=== PATIENT | male | born 1960 | race Two or more races ===

== ENCOUNTER 2019-10-08 23:56 | Inpatient (IN) | payer MEDICAID ==
[~2019-10-08] VITALS: Ht 175.3 cm; Wt 66.9 kg
[2019-10-09 00:46] LABS: Basophils # (auto) 0 10 ^3/uL (0-0.2); Basophils % (auto) 0.3 % (0.0-2.0); Eosinophils # (auto) 0 10 ^3/uL (0-0.8); Eosinophils % (auto) 0.4 % (0.0-7.0); Hematocrit 30.4 % (41.0-53.0); Lymphocytes # (auto) 0.2 10 ^3/uL (0.4-5.4); Lymphocytes % (auto) 5.2 % (10.0-50.0); Mean Corpuscular Hemoglobin 29.9 pg (28.0-32.0); Mean Corpuscular Hgb Conc. 32.8 g/dL (32.0-36.0); Mean Corpuscular Volume 91.1 fL (80.0-100.0); Monocytes # (auto) 0.1 10 ^3/uL (0-1.3); Monocytes % (auto) 4.9 % (0.0-12.0); Neutrophils # (auto) 2.6 10 ^3/uL (1.6-8.6); Neutrophils % (auto) 89.2 % (37.0-80.0); Nucleated Red Blood Cells % 0.1 %; Platelet Count (auto) 117 10^3/uL (140-450); Red Blood Cells 3.34 10^6/uL (4.5-5.90); Red Cell Distribution Width 13.1 % (11.8-14.3); White Blood Cell 2.9 10^3/uL (4.4-10.8)
[2019-10-09 00:58] LABS: Alanine Aminotransferase 74 U/L (16-61); Albumin 2.2 g/dL (3.4-5.0); Anion Gap 7 (5-15); Aspartate Aminotransferase 63 U/L (15-37); BUN/Creatinine Ratio 15.7; Blood Urea Nitrogen 11 mg/dL (7-18); Calcium 7.5 mg/dL (8.5-10.1); Carbon Dioxide 27 mmol/L (21-32); Chloride 97 mmol/L (98-107); GFR African American 150 mL/min; GFR Non-African American 124 mL/min; Glucose 125 mg/dL (74-106); Potassium 3.9 mmol/L (3.5-5.1); Sodium 131 mmol/L (136-145)
[2019-10-09] MEDS ORDERED: PIPERACILLIN-TAZOB 3.375GM 100 ML IV ONE (01:00)
[2019-10-09] MEDS ORDERED: VANCOMYCIN 1GM/250ML 250 ML IV ONE (01:00)
[2019-10-09] MEDS ORDERED: SODIUM CHLORIDE 0.9% 500 ML IV ONE ×2 (01:00→17:00)
[2019-10-09 01:02] LABS: Alkaline Phosphatase 143 U/L (45-117); Bilirubin, Total 0.7 mg/dL (0.2-1.0); Total Protein 6.1 g/dL (6.4-8.2)
[2019-10-09 01:39] LABS: INR 1.13 (0.9-1.15); Partial Thromboplastin Time 26.5 sec (23.0-31.2)
[2019-10-09] MEDS ORDERED: MORPHINE SULF INJ 2 MG/ML SYRINGE 1ML IV PRN (06:15)
[2019-10-09] MEDS ORDERED: NITROGLYCERIN 0.4 MG SL TAB SL PRN (06:15)
[2019-10-09] MEDS ORDERED: ACETAMINOPHEN 325 MG TAB PO PRN (06:15)
[2019-10-09] MEDS ORDERED: ONDANSETRON HCL 4 MG/2 ML VIAL IV PRN (06:15)
[2019-10-09 06:38] LABS: Magnesium 1.9 mg/dL (1.6-2.6)
[2019-10-09 06:52] LABS: CRP High Sensitivity 17.9 mg/dL (< 0.3)
--- NOTE | 2019-10-09 08:45 | NUR ---
Patient arrived from ER via wheelchair. Patient oriented to room, call light placed bedside, bed in locked and lowest position with 2x side rails up. Patient placed on 10L simple mask. VS: 99.7, 87, 16, 98%, 94/63. No complaints of pain or discomfort at this time. Personal belongings bedside with patient.
[2019-10-09 09:00] VITALS: BP 94/63
[2019-10-09] MEDS ORDERED: ENOXAPARIN SOD 40 MG/0.4 ML SYRINGE SC SCH ×2 (10:00)
[2019-10-09] MEDS ORDERED: DOXYCYCLINE 100MG/250ML 250 ML IV SCH (10:00)
[2019-10-09] MEDS: DexAMETHasone SOD PHOS 10MG/1ML VIAL INJ IV SCH (10:05)
[2019-10-09] MEDS: CHOLECALCIFEROL (VITD3) 2,000 UNIT CAP PO SCH (10:06)
[2019-10-09] MEDS: ASCORBIC ACID 1,000 MG TAB PO SCH (10:06)
[2019-10-09] MEDS: ZINC SULFATE 220mg CAP or TAB PO SCH (10:06)
[2019-10-09] MEDS: FAMOTIDINE 20 MG TAB PO SCH ×2 (10:06→22:31)
[2019-10-09] MEDS ORDERED: AZIT250T8 PO (10:27)
[2019-10-09] MEDS ORDERED: IPRAAER6 IN (10:27)
[2019-10-09] MEDS ORDERED: ALBUAER3 IN (10:27)
[2019-10-09] MEDS ORDERED: METH-818 PO (10:27)
[2019-10-09] MEDS ORDERED: VANCOMYCIN PER PHARMACY 0 MG IV SCH (11:45)
[2019-10-09 12:00] VITALS: BP 102/64
--- NOTE | 2019-10-09 12:45 | NUR ---
Dr Lyles bedside with patient discussing plan of care.
[2019-10-09] MEDS ORDERED: LACTULOSE 20Gm/30ML SOLN PO ONE (13:00)
--- NOTE | 2019-10-09 13:06 | NUR ---
Medical Record Request Request for medical records faxed to [facility] ([place]). Signed request in chart.
[2019-10-09] MEDS: PIPERACILLIN-TAZOB 3.375GM 100 ML IV SCH ×2 (13:12→18:11)
--- NOTE | 2019-10-09 13:25 | NUR ---
Covid swab walked down to lab
[2019-10-09] MEDS ORDERED: VANCOMYCIN 1GM/250ML 250 ML IV SCH (15:00)
--- NOTE | 2019-10-09 15:30 | NUR ---
Remdesivir consent Patient reviewed and signed consent for Remdesivir. Faxed Remdesivir consent to pharmacy and placed in patient chart
--- NOTE | 2019-10-09 15:59 | NUR ---
Informed Dr Lyles of patients run of [facility]. Strip in chart. Dr Lyles placing orders. Addendum: 10/09/19 at 1602 by MARCO GARCIA RN RN Wrong patient Note. Disregard
[2019-10-09] MEDS ORDERED: MAGNESIUM SULFATE 1GM/100ML 100 ML IV SCH (16:00)
--- NOTE | 2019-10-09 16:45 | NUR ---
Patients BP 77/59. Informed Dr Lyles, 500 ml bolus ordered and carried out. Per Dr Lyles, hold administration of Remdesivir today. Per Pharmacy request, medication sent back to Pharmacy. Will continue to monitor patient
[2019-10-09 17:00] VITALS: BP 85/54
[2019-10-09] MEDS ORDERED: REMDESIVIR 200 MG in NS 210ml LOADING DOSE ADULT IV ONE (17:00)
--- NOTE | 2019-10-09 17:50 | NUR ---
BP Reassessment BP is now 92/50. Patient remains asymptomatic. Will continue to monitor.
--- NOTE | 2019-10-09 18:05 | NUR ---
Dr Lyles informed of new bp. would like patient upgraded to CARISA status. Informed Charge Nurse, Joel, and carried out orders from
--- NOTE | 2019-10-09 19:00 | NUR ---
Convalescent Plasma consent Convalescent plasma consent signed by patient and placed in patient chart
--- NOTE | 2019-10-09 19:10 | NUR ---
PATIENT IS RESTING IN BED. HE CURRENTLY IS ON 10L SIMPLE MASK AND IS A0X4. HE HAS NO COMPLAINTS OF PAIN AT THE MOMENT. HE DOES NOTE THAT ONLY AFTER A COUPLE OF STEPS HE GETS SHORT OF BREATH SO FOR NOW HE WOULD PREFER TO STAY IN BED. BREATH SOUNDS WERE DIMINISHED IN THE BASES BILATERALLY WITH SHALLOW BREATHS. BED IS LOCKED IN LOWEST POSITION WITH SIDE RAILS UP X2. WILL CONTINUE TO MONITOR.
--- NOTE | 2019-10-09 21:30 | NUR ---
IV insertion IV access obtained, via clean sterile technique by inserting 20 gauge catheter at Left forearm after 1 attempt. IV secured properly. No trauma to site. Patient tolerated procedure well.
[2019-10-09] MEDS: VANCOMYCIN 1GM/250ML 250 ML IV SCH (21:35)
[2019-10-09 22:00] VITALS: BP 99/63
[2019-10-09] MEDS: MAGNESIUM SULFATE 1GM/100ML 100 ML IV SCH ×2 (22:05→23:10)
--- NOTE | 2019-10-09 22:10 | NUR ---
UA SENT TO LAB AT THIS TIME.
[2019-10-09 22:22] LABS: Urine WBC None Seen /hpf (0 - 3)
[2019-10-09] MEDS: ENOXAPARIN SOD 40 MG/0.4 ML SYRINGE SC SCH (22:31)
[2019-10-09 22:37] LABS: Urine Bacteria NONE SEEN /hpf (None Seen); Urine Blood Negative /uL (Negative); Urine Specific Gravity 1.013 (1.001-1.035)
[2019-10-10] MEDS: PIPERACILLIN-TAZOB 3.375GM 100 ML IV SCH ×4 (00:12→19:00)
[2019-10-10 05:00] VITALS: BP 94/56
[2019-10-10] MEDS: VANCOMYCIN 1GM/250ML 250 ML IV SCH ×2 (07:01→17:33)
[2019-10-10 07:14] LABS: Basophils # (auto) 0 10 ^3/uL (0-0.2); Basophils % (auto) 0.8 % (0.0-2.0); Eosinophils # (auto) 0 10 ^3/uL (0-0.8); Eosinophils % (auto) 0.5 % (0.0-7.0); Hematocrit 33.4 % (41.0-53.0); Hemoglobin 10.7 g/dL (13.5-17.5); Lymphocytes # (auto) 0.2 10 ^3/uL (0.4-5.4); Lymphocytes % (auto) 5.4 % (10.0-50.0); Mean Corpuscular Hemoglobin 30.1 pg (28.0-32.0); Mean Corpuscular Hgb Conc. 31.9 g/dL (32.0-36.0); Mean Corpuscular Volume 94.2 fL (80.0-100.0); Monocytes # (auto) 0.2 10 ^3/uL (0-1.3); Monocytes % (auto) 6.8 % (0.0-12.0); Neutrophils # (auto) 2.8 10 ^3/uL (1.6-8.6); Neutrophils % (auto) 86.5 % (37.0-80.0); Nucleated Red Blood Cells % 0.1 %; Platelet Count (auto) 122 10^3/uL (140-450); Red Blood Cells 3.55 10^6/uL (4.5-5.90); Red Cell Distribution Width 13.6 % (11.8-14.3); White Blood Cell 3.2 10^3/uL (4.4-10.8)
[2019-10-10 07:27] LABS: Albumin 2.3 g/dL (3.4-5.0); Calcium 7.9 mg/dL (8.5-10.1)
[2019-10-10 07:33] LABS: BUN/Creatinine Ratio 10.3; Total Protein 6.5 g/dL (6.4-8.2)
--- NOTE | 2019-10-10 08:00 | NUR ---
PATIENT TITRATED DOWN TO 8L ON SIMPLE MASK. PATIENT TOLERATING WELL. NO S/S OF DISTRESS NOTED AT THIS TIME.
[2019-10-10 09:00] VITALS: BP 112/64
[2019-10-10] MEDS: DexAMETHasone SOD PHOS 10MG/1ML VIAL INJ IV SCH (10:21)
[2019-10-10] MEDS: ZINC SULFATE 220mg CAP or TAB PO SCH (10:21)
[2019-10-10] MEDS: CHOLECALCIFEROL (VITD3) 2,000 UNIT CAP PO SCH (10:22)
[2019-10-10] MEDS: ASCORBIC ACID 1,000 MG TAB PO SCH (10:22)
[2019-10-10] MEDS: FAMOTIDINE 20 MG TAB PO SCH ×2 (10:22→21:42)
[2019-10-10] MEDS: ENOXAPARIN SOD 40 MG/0.4 ML SYRINGE SC SCH ×2 (10:22→21:42)
--- NOTE | 2019-10-10 11:12 | NUR ---
PATIENT OXYGEN SATURATIONS AT 100%. PATIENT TOLERATING WELL TITRATED DOWN TO 7L OXYMIZER. RR 20. DENIES ANY LIGHT HEADEDNESS OR DIZZINESS AT THIS TIME.
[2019-10-10 12:49] VITALS: BP 114/64
[2019-10-10] MEDS ORDERED: LACTULOSE 20Gm/30ML SOLN PO PRN (13:00)
--- NOTE | 2019-10-10 14:58 | NUR ---
PER Nicole SILVA FOR PATIENT TO RECEIVE REMDESIVIR TODAY. OK TO DO LOADING DOSE IT WAS SKIPPED YESTERDAY.
--- NOTE | 2019-10-10 15:18 | NUR ---
INFORMED Nicole MILNER OF ELEVATED D-DIMER. NO NEW ORDERS RECEIVED.
[2019-10-10] MEDS ORDERED: REMDESIVIR 200 MG in NS 210ml LOADING DOSE ADULT IV ONE (17:00)
[2019-10-10 18:09] VITALS: BP 102/61
[2019-10-10 18:54] VITALS: BP 96/67
--- NOTE | 2019-10-10 19:20 | NUR ---
Opening Shift Note Received report from jemima Nielsen RN. Assumed care of patient, awake and alert. No S/S of distress/SOB or pain. Patient is on 4LNC saturating at 91%. Instructed on POC and to call for assist PRN, will continue to monitor for changes Q1hr and PRN. Bed placed in lowest position and call light within reach.
[2019-10-10 22:00] VITALS: BP 97/62
[2019-10-11] VITALS (8 sets, daily range): BP systolic 85–101; BP diastolic 54–69
[2019-10-11] MEDS: PIPERACILLIN-TAZOB 3.375GM 100 ML IV SCH ×4 (00:08→17:42)
--- NOTE | 2019-10-11 03:24 | NUR ---
Vancomycin trough result in at 0324. Vancomycin started at 0329.
[2019-10-11] MEDS: VANCOMYCIN 1GM/250ML 250 ML IV SCH ×3 (03:29→19:03)
--- NOTE | 2019-10-11 04:28 | NUR ---
Titrated patient to 4LNC. Patient is saturating at 96%. Will monitor
[2019-10-11 06:33] LABS: Basophils # (auto) 0 10 ^3/uL (0-0.2); Basophils % (auto) 0.2 % (0.0-2.0); Eosinophils # (auto) 0 10 ^3/uL (0-0.8); Eosinophils % (auto) 0.6 % (0.0-7.0); Hematocrit 26.4 % (41.0-53.0); Lymphocytes # (auto) 0.2 10 ^3/uL (0.4-5.4); Lymphocytes % (auto) 7.7 % (10.0-50.0); Monocytes # (auto) 0.2 10 ^3/uL (0-1.3); Neutrophils # (auto) 1.9 10 ^3/uL (1.6-8.6); Neutrophils % (auto) 81.5 % (37.0-80.0); Nucleated Red Blood Cells % 0.1 %; Platelet Count (auto) 110 10^3/uL (140-450); Red Cell Distribution Width 13.1 % (11.8-14.3); White Blood Cell 2.3 10^3/uL (4.4-10.8)
[2019-10-11 06:56] LABS: Albumin 2.1 g/dL (3.4-5.0); Calcium 7.8 mg/dL (8.5-10.1); Potassium 3.8 mmol/L (3.5-5.1)
[2019-10-11 07:01] LABS: BUN/Creatinine Ratio 14.8; Bilirubin, Total 0.8 mg/dL (0.2-1.0); Total Protein 5.6 g/dL (6.4-8.2)
--- NOTE | 2019-10-11 07:22 | NUR ---
RESPIRATORY NOTE POX CHECK DONE BY RT. HR 75, RR 16, SPO2 95% ON 5 L NC, BS CLEAR AND DIMINISHED. NO SIGNS OR SYMPTOMS OF RESPIRATORY DISTRESS NOTED AT THIS TIME.
[2019-10-11] MEDS: DexAMETHasone SOD PHOS 10MG/1ML VIAL INJ IV SCH (09:39)
[2019-10-11] MEDS: ZINC SULFATE 220mg CAP or TAB PO SCH (09:39)
[2019-10-11] MEDS: FAMOTIDINE 20 MG TAB PO SCH ×2 (09:39→21:35)
[2019-10-11] MEDS: ASCORBIC ACID 1,000 MG TAB PO SCH (09:39)
[2019-10-11] MEDS: CHOLECALCIFEROL (VITD3) 2,000 UNIT CAP PO SCH (09:39)
[2019-10-11] MEDS: ENOXAPARIN SOD 40 MG/0.4 ML SYRINGE SC SCH ×2 (09:40→21:36)
--- NOTE | 2019-10-11 14:38 | NUR ---
PATIENT SITTING IN CHAIR, NO S/S OF DISTRESS NOTED AT THIS TIME. ENCOURAGED TO AMBULATE IN ROOM.
--- NOTE | 2019-10-11 16:16 | NUR ---
INFORMED Nicole MILNER OF PATIENTS DROP IN HEMOGLOBIN AND ABSENCE OF BOWEL MOVEMENT FOR 5 DAYS. RECEIVED NEW ORDER FOR CONSTIPATION. NO OTHER NEW ORDERS RECEIVED AT THIS TIME.
[2019-10-11] MEDS ORDERED: REMDESIVIR 100mg in NS 230ml DAILYx4DAYS (NO VENT) IV SCH (17:00)
[2019-10-11] MEDS: REMDESIVIR 100mg in NS 230ml DAILYx4DAYS (NO VENT) IV SCH (17:42)
--- NOTE | 2019-10-11 19:15 | NUR ---
Opening Shift Note Received report from jemima Nielsen RN. Assumed care of patient, awake and alert. No S/S of distress/SOB or pain. Patient is on 4LNC saturating at 96%. Encouraged patient to do prone position tonight when sleeping. Will monitor. Instructed on POC and to call for assist PRN, will continue to monitor for changes Q1hr and PRN. Bed placed in lowest position, and call light within reach.
[2019-10-11] MEDS: TEMAZEPAM 15 MG CAP PO PRN (21:35)
--- NOTE | 2019-10-11 21:35 | NUR ---
Given Restoril for sleep as ordered per patient's request. Patient states he just want to have a good rest.
--- NOTE | 2019-10-11 22:00 | NUR ---
Offered patient lactulose as ordered to facilitate bowel movement, but patient refused. Patient states that he received Colace this morning and that he just wants to wait and see what happens in the morning.
[2019-10-12] VITALS (9 sets, daily range): BP systolic 85–129; BP diastolic 58–73
[2019-10-12] MEDS: PIPERACILLIN-TAZOB 3.375GM 100 ML IV SCH ×5 (00:17→23:58)
[2019-10-12] MEDS: VANCOMYCIN 1GM/250ML 250 ML IV SCH ×3 (02:59→18:14)
--- NOTE | 2019-10-12 06:53 | NUR ---
ROUNDS Patient is resting in bed with eyes closed but awake, no distress noted. Patient is on 4LNC saturating at 96%. Patient denies pain this time.
[2019-10-12 08:20] LABS: Basophils # (auto) 0 10 ^3/uL (0-0.2); Basophils % (auto) 0.2 % (0.0-2.0); Eosinophils # (auto) 0 10 ^3/uL (0-0.8); Eosinophils % (auto) 0.6 % (0.0-7.0); Hematocrit 26.7 % (41.0-53.0); Hemoglobin 9.1 g/dL (13.5-17.5); Lymphocytes # (auto) 0.2 10 ^3/uL (0.4-5.4); Lymphocytes % (auto) 9.7 % (10.0-50.0); Mean Corpuscular Hemoglobin 30.9 pg (28.0-32.0); Mean Corpuscular Hgb Conc. 34.1 g/dL (32.0-36.0); Mean Corpuscular Volume 90.5 fL (80.0-100.0); Monocytes # (auto) 0.2 10 ^3/uL (0-1.3); Monocytes % (auto) 8.9 % (0.0-12.0); Neutrophils # (auto) 2.1 10 ^3/uL (1.6-8.6); Neutrophils % (auto) 80.6 % (37.0-80.0); Nucleated Red Blood Cells % 0.2 %; Platelet Count (auto) 129 10^3/uL (140-450); Red Blood Cells 2.95 10^6/uL (4.5-5.90); Red Cell Distribution Width 13.4 % (11.8-14.3); White Blood Cell 2.6 10^3/uL (4.4-10.8)
[2019-10-12 08:33] LABS: Albumin 2.2 g/dL (3.4-5.0); Potassium 3.7 mmol/L (3.5-5.1)
[2019-10-12 08:37] LABS: BUN/Creatinine Ratio 16.4; Bilirubin, Total 0.6 mg/dL (0.2-1.0); Total Protein 5.6 g/dL (6.4-8.2)
[2019-10-12] MEDS: DexAMETHasone SOD PHOS 10MG/1ML VIAL INJ IV SCH (09:29)
[2019-10-12] MEDS: ASCORBIC ACID 1,000 MG TAB PO SCH (09:30)
[2019-10-12] MEDS: FAMOTIDINE 20 MG TAB PO SCH ×2 (09:30→22:02)
[2019-10-12] MEDS: ZINC SULFATE 220mg CAP or TAB PO SCH (09:30)
[2019-10-12] MEDS: CHOLECALCIFEROL (VITD3) 2,000 UNIT CAP PO SCH (09:30)
[2019-10-12] MEDS: ENOXAPARIN SOD 40 MG/0.4 ML SYRINGE SC SCH ×2 (09:30→22:00)
[2019-10-12] MEDS ORDERED: DOCUSATE SOD 100 MG CAP PO SCH (10:00)
[2019-10-12 10:26] LABS: Basophils # (auto) 0 10 ^3/uL (0-0.2); Basophils % (auto) 0.3 % (0.0-2.0); Eosinophils # (auto) 0 10 ^3/uL (0-0.8); Eosinophils % (auto) 1.1 % (0.0-7.0); Hematocrit 27.1 % (41.0-53.0); Hemoglobin 8.9 g/dL (13.5-17.5); Lymphocytes # (auto) 0.2 10 ^3/uL (0.4-5.4); Lymphocytes % (auto) 5.7 % (10.0-50.0); Mean Corpuscular Hemoglobin 30.2 pg (28.0-32.0); Mean Corpuscular Volume 91.6 fL (80.0-100.0); Monocytes # (auto) 0.2 10 ^3/uL (0-1.3); Monocytes % (auto) 8.8 % (0.0-12.0); Neutrophils # (auto) 2.4 10 ^3/uL (1.6-8.6); Neutrophils % (auto) 84.1 % (37.0-80.0); Nucleated Red Blood Cells % 0.1 %; Platelet Count (auto) 124 10^3/uL (140-450); Red Blood Cells 2.96 10^6/uL (4.5-5.90); Red Cell Distribution Width 13.3 % (11.8-14.3); White Blood Cell 2.8 10^3/uL (4.4-10.8)
--- NOTE | 2019-10-12 11:00 | NUR ---
SPOKE TO Nicole RUDOLPH REGARDING PATIENT STATUS INFORMED OF BLOOD PRESSURES AND PATIENTS HEMOGLOBIN TRENDING DOWN. INFORMED THIS RN HELD LOVENOX. INSTRUCTED TO CONTINUE TO HOLD LOVENOX.
[2019-10-12 11:37] LABS: Potassium 3.6 mmol/L (3.5-5.1)
[2019-10-12 11:50] LABS: Albumin 2.1 g/dL (3.4-5.0); BUN/Creatinine Ratio 14.5; Bilirubin, Total 0.6 mg/dL (0.2-1.0); Total Protein 5.5 g/dL (6.4-8.2)
[2019-10-12] MEDS: LACTULOSE 20Gm/30ML SOLN PO SCH (12:56)
--- NOTE | 2019-10-12 15:05 | NUR ---
10/12/19 1505 Called [facility] and spoke with Divya stated they received the clinical packet and it is being reviewed, # [id number] given for 10/10/19@1000am, requesting in patient stay authorization for 10/13/19.
--- NOTE | 2019-10-12 15:13 | NUR ---
Nutrition Assessment Notes please see attached link for complete assessment Est energy needs BW 68 [id number] kcal (25-30 kcal/kg BW), Est protein needs: 68-88 g (1.0-1.3 g/kg BW). Will reassess prn Addendum: 10/12/19 at [address] Amended: Links added.
[2019-10-12] MEDS: REMDESIVIR 100mg in NS 230ml DAILYx4DAYS (NO VENT) IV SCH (18:14)
--- NOTE | 2019-10-12 19:15 | NUR ---
Opening Shift Note Assumed care of patient. Patient is awake, alert, and oriented X 4. No S/S of respiratory distress/SOB or pain reported. Patient on 3 L NC with O2 saturation 96%. Bed in lowest position, brakes locked, side rails up x 2, call light within reach. POC discussed. All questions answered. Patient verbalized understanding. Patient instructed to call for assistance as needed. Will continue to monitor for changes Q1hr and PRN.
--- NOTE | 2019-10-12 19:16 | NUR ---
IV TO LFA DC'D DUE TO INFILTRATION. PATIENT DENIES ANY PAIN AT SITE. AFFECTED EXTREMITY ELEVATED.
--- NOTE | 2019-10-12 19:43 | NUR ---
ENDORSED CARE TO ISIDRA GRIDER. INFORMED OF PATIENT STATUS.
[2019-10-12] MEDS: TEMAZEPAM 15 MG CAP PO PRN (22:02)
[2019-10-13 05:00] VITALS: BP 92/66
[2019-10-13] MEDS: PIPERACILLIN-TAZOB 3.375GM 100 ML IV SCH ×3 (05:56→18:20)
[2019-10-13 07:57] LABS: Basophils # (auto) 0 10 ^3/uL (0-0.2); Basophils % (auto) 0.6 % (0.0-2.0); Eosinophils # (auto) 0 10 ^3/uL (0-0.8); Eosinophils % (auto) 1.5 % (0.0-7.0); Hematocrit 29.4 % (41.0-53.0); Hemoglobin 9.3 g/dL (13.5-17.5); Lymphocytes # (auto) 0.2 10 ^3/uL (0.4-5.4); Lymphocytes % (auto) 8.4 % (10.0-50.0); Mean Corpuscular Hemoglobin 30.2 pg (28.0-32.0); Mean Corpuscular Hgb Conc. 31.7 g/dL (32.0-36.0); Mean Corpuscular Volume 95.3 fL (80.0-100.0); Monocytes # (auto) 0.3 10 ^3/uL (0-1.3); Monocytes % (auto) 9.3 % (0.0-12.0); Neutrophils # (auto) 2.4 10 ^3/uL (1.6-8.6); Neutrophils % (auto) 80.2 % (37.0-80.0); Nucleated Red Blood Cells % 0.1 %; Platelet Count (auto) 125 10^3/uL (140-450); Red Blood Cells 3.08 10^6/uL (4.5-5.90); Red Cell Distribution Width 14.1 % (11.8-14.3); White Blood Cell 2.9 10^3/uL (4.4-10.8)
[2019-10-13 08:33] LABS: Albumin 2.2 g/dL (3.4-5.0); Calcium 7.9 mg/dL (8.5-10.1); Potassium 3.8 mmol/L (3.5-5.1)
[2019-10-13 08:36] LABS: BUN/Creatinine Ratio 14.1; Bilirubin, Total 0.6 mg/dL (0.2-1.0); Total Protein 5.7 g/dL (6.4-8.2)
[2019-10-13 09:26] VITALS: BP 98/70
[2019-10-13] MEDS: ENOXAPARIN SOD 40 MG/0.4 ML SYRINGE SC SCH ×2 (10:00→21:53)
[2019-10-13] MEDS: LACTULOSE 20Gm/30ML SOLN PO SCH (10:00)
[2019-10-13] MEDS: DexAMETHasone SOD PHOS 10MG/1ML VIAL INJ IV SCH (10:06)
[2019-10-13] MEDS: FAMOTIDINE 20 MG TAB PO SCH ×2 (10:07→21:52)
[2019-10-13] MEDS: CHOLECALCIFEROL (VITD3) 2,000 UNIT CAP PO SCH (10:07)
[2019-10-13] MEDS: ASCORBIC ACID 1,000 MG TAB PO SCH (10:07)
[2019-10-13] MEDS: ZINC SULFATE 220mg CAP or TAB PO SCH (10:07)
[2019-10-13 13:21] VITALS: BP 99/68
[2019-10-13 17:00] VITALS: BP 81/52
[2019-10-13] MEDS: REMDESIVIR 100mg in NS 230ml DAILYx4DAYS (NO VENT) IV SCH (17:12)
--- NOTE | 2019-10-13 18:42 | NUR ---
REMDESIVIR ASSESSMENT PRE-INFUSION VITAL SIGNS: TEMP:BP93/56 HR63 RR20 POST-INFUSION VITAL SIGNS; TEMP:BP92/57 HR68 RR20
--- NOTE | 2019-10-13 19:10 | NUR ---
Opening Shift Note Assumed care of patient. Patient is awake, alert, and oriented X 4. No S/S of respiratory distress/SOB or pain reported. Patient on 2 L NC with O2 saturation 95%. Bed in lowest position, brakes locked, side rails up x 2, call light within reach. POC discussed. All questions answered. Patient verbalized understanding. Patient instructed to call for assistance as needed. Will continue to monitor for changes Q1hr and PRN.
[2019-10-13 20:00] VITALS: BP 90/53
[2019-10-13] MEDS: TEMAZEPAM 15 MG CAP PO PRN (21:53)
[2019-10-13 22:00] VITALS: BP 90/53
--- NOTE | 2019-10-13 23:15 | NUR ---
Respiratory note: PATIENT SEEN AND ASSESSED AT 2315. NO DISTRESS NOTED AT THIS TIME. HR 66 RR 20 SP02 92% ON 3L NASAL CANNULA.
[2019-10-14] VITALS (7 sets, daily range): BP systolic 82–94; BP diastolic 56–65
[2019-10-14] MEDS: PIPERACILLIN-TAZOB 3.375GM 100 ML IV SCH ×3 (00:06→12:50)
--- NOTE | 2019-10-14 06:11 | NUR ---
Oxygen titrated to 1 lpm. Patient is on 1 lpm O2 via NC with saturation 95%. HR 67 bpm, RR 19 bpm. No s/s of respiratory distress. Will continue to monitor.
[2019-10-14 06:42] LABS: Basophils # (auto) 0 10 ^3/uL (0-0.2); Basophils % (auto) 0.2 % (0.0-2.0); Eosinophils # (auto) 0.1 10 ^3/uL (0-0.8); Eosinophils % (auto) 2.2 % (0.0-7.0); Hematocrit 32.6 % (41.0-53.0); Hemoglobin 10.6 g/dL (13.5-17.5); Lymphocytes # (auto) 0.4 10 ^3/uL (0.4-5.4); Lymphocytes % (auto) 11.7 % (10.0-50.0); Mean Corpuscular Hemoglobin 30.2 pg (28.0-32.0); Mean Corpuscular Hgb Conc. 32.6 g/dL (32.0-36.0); Mean Corpuscular Volume 92.7 fL (80.0-100.0); Monocytes # (auto) 0.3 10 ^3/uL (0-1.3); Neutrophils # (auto) 2.4 10 ^3/uL (1.6-8.6); Neutrophils % (auto) 76.9 % (37.0-80.0); Nucleated Red Blood Cells % 0.5 %; Platelet Count (auto) 155 10^3/uL (140-450); Red Blood Cells 3.52 10^6/uL (4.5-5.90); Red Cell Distribution Width 13.7 % (11.8-14.3); White Blood Cell 3.2 10^3/uL (4.4-10.8)
[2019-10-14 07:03] LABS: Potassium 3.6 mmol/L (3.5-5.1)
[2019-10-14 07:11] LABS: Albumin 2.5 g/dL (3.4-5.0); BUN/Creatinine Ratio 14.1; Bilirubin, Total 0.7 mg/dL (0.2-1.0); Calcium 8.2 mg/dL (8.5-10.1); Total Protein 6.3 g/dL (6.4-8.2)
--- NOTE | 2019-10-14 07:22 | NUR ---
Respiratory note: POX CHECK, NO RESP DISTRESS NOTED. HR 73, RR 16, SPO2 97% ON 1L N/C.
[2019-10-14] MEDS: DexAMETHasone SOD PHOS 10MG/1ML VIAL INJ IV SCH (09:05)
[2019-10-14] MEDS: LACTULOSE 20Gm/30ML SOLN PO SCH (09:05)
[2019-10-14] MEDS: ZINC SULFATE 220mg CAP or TAB PO SCH (09:06)
[2019-10-14] MEDS: ASCORBIC ACID 1,000 MG TAB PO SCH (09:07)
[2019-10-14] MEDS: CHOLECALCIFEROL (VITD3) 2,000 UNIT CAP PO SCH (09:07)
[2019-10-14] MEDS: ENOXAPARIN SOD 40 MG/0.4 ML SYRINGE SC SCH (09:07)
[2019-10-14] MEDS: FAMOTIDINE 20 MG TAB PO SCH (09:07)
[2019-10-14] MEDS ORDERED: CHOL1CAP47 PO (11:38)
[2019-10-14] MEDS ORDERED: ASCO10003 PO (11:38)
[2019-10-14] MEDS ORDERED: FAMO-12 PO (11:38)
[2019-10-14] MEDS ORDERED: LEVO750T64 PO (11:38)
[2019-10-14] MEDS ORDERED: ZINCCAP PO (11:38)
[2019-10-14] MEDS ORDERED: METH4PAK PO (11:38)
[2019-10-14] MEDS ORDERED: REMDESIVIR 100mg in NS 230ml DAILYx4DAYS (NO VENT) IV SCH (14:00)
--- NOTE | 2019-10-14 15:57 | NUR ---
Discharge instructions given as ordered. Encourage to follow up with PMD as instructed. All questions and concerns addressed. PATIENT INSTRUCTED TO FOLLOW UP AND USE OXYGEN DIRECTED. INSTRUCTED TO TAKE ALL MEDICATIONS PRESCRIBED. Patient verbalized understanding. Medication reconciliation form completed and copy given to patient. IV removed with catheter intact, pressure dressing applied. Telemetry unit returned to ICU. Patient taken to vehicle via wheelchair with all personal belongings, accompanied by staff and family member. No distress noted at time of departure.
== END 2019-10-14 15:57 | disposition home or self-care (01) | DRG 720 ==
LOC: EDBD 23:56 → ER 10-09 00:04 → TELE 10-09 00:05 → TELE-EAST 10-09 09:08
PROVIDERS: ADMIT Nurse Practitioner; ATTEND Internal Medicine
PROC: XW033E5 Introduction of Remdesivir Anti-infective into Peripheral Vein, Percutaneous Approach, New Technology Group 5 (ICD-10-PCS; 2019-10-09)
PROC: 30233K1 Transfusion of Nonautologous Frozen Plasma into Peripheral Vein, Percutaneous Approach (ICD-10-PCS; principal; 2019-10-12)
PROC: XW13325 Transfusion of Convalescent Plasma (Nonautologous) into Peripheral Vein, Percutaneous Approach, New Technology Group 5 (ICD-10-PCS; 2019-10-12)
DX: A41.89 Other specified sepsis (principal); U07.1 COVID-19; J12.89 Other viral pneumonia; R62.7 Adult failure to thrive; D61.818 Other pancytopenia; E43 Unspecified severe protein-calorie malnutrition; J96.01 Acute respiratory failure with hypoxia; E87.1 Hypo-osmolality and hyponatremia; G62.9 Polyneuropathy, unspecified; I10 Essential (primary) hypertension; J84.10 Pulmonary fibrosis, unspecified; Z82.49 Family history of ischemic heart disease and other diseases of the circulatory system; Z83.3 Family history of diabetes mellitus; Z85.72 Personal history of non-Hodgkin lymphomas; Z86.19 Personal history of other infectious and parasitic diseases; Z94.81 Bone marrow transplant status; J15.6 Pneumonia due to other Gram-negative bacteria; N17.0 Acute kidney failure with tubular necrosis; Z68.22 Body mass index [BMI] 22.0-22.9, adult
CPT/HCPCS: 36415; 36600; 71045; 71250; 80053; 80202; 80320; 81001; 82607; 82728; 82805; 83605; 83615; 83735; 83880; 84436; 84443; 84484; 85025; 85045; 85379; 85610; 85730; 86141; 86850; 86900; 86901; 87040; 87081; 87086; 87426; 93005; 93970; 94760; 94762; G0378; J1100; J2543; J3490